=== PATIENT | female | born 1990 | race Hispanic/Latino ===

== ENCOUNTER 2021-12-31 16:16 | Inpatient (IN) | payer OTHER, SELFPAY ==
[2021-12-31] MEDS ORDERED: Promethazine HCl 25 MG/ML VIAL IM PRN (16:44)
[2021-12-31] MEDS ORDERED: hydrALAZINE 20 MG/ML VIAL SLOW IVP PRN (16:44)
[2021-12-31] MEDS ORDERED: Ondansetron PF 4 MG/2 ML Vial IVP PRN (16:44)
[2021-12-31] MEDS ORDERED: Misoprostol 200 MCG TAB PR PRN (16:46)
[2021-12-31] MEDS ORDERED: Lidocaine 1% (PF) 30 ML VIAL SC PRN (16:46)
[2021-12-31] MEDS ORDERED: Ibuprofen 800 MG TAB PO PRN (16:46)
[2021-12-31] MEDS ORDERED: NS w/ Oxytocin 30 units 500 ML IV SCH (17:00)
[2021-12-31 17:14] VITALS: BMI 32.1
[2021-12-31 18:04] LABS: Hemoglobin 10.8 g/dL (12.0-15.5); Mean Corpuscular HGB CONC 33.8 g/dL (32.0-36.0); Mean Corpuscular Hemoglobin 29.2 pg (27.0-33.0); Mean Corpuscular Volume 86.5 fl (81.6-98.3); Mean Platelet Volume 11.8 fl (7.4-10.4); Platelet Count 226 10x3/uL (150-450); RBC Distribution Width 14.1 % (11.5-14.5); White Blood Cell (WBC) Count 9.8 10x3/uL (3.5-10.5)
[2021-12-31 18:28] LABS: HIV (1/2) Antibody/Antigen Non-Reactive (NonReactive); HIV 1/2 INDEX 0.06 S/CO (<1.00); Hep B Surf Ag Non-Reactive S/CO (NonReactive)
[2021-12-31 18:29] LABS: HBSAg Index 0.21 S/CO (0-0.99)
[2021-12-31] MEDS ORDERED: Preparation H Ointment 28 GM TUBE PR PRN (18:53)
[2021-12-31] MEDS ORDERED: Milk Of Magnesia 30 ML UDCUP PO PRN (18:53)
[2021-12-31] MEDS ORDERED: Bisacodyl 10 MG SUPP PR PRN (18:53)
[2021-12-31 19:20] LABS: Syphilis Antibody Nonreactive (Nonreactive); Syphilis Antibody Index 0.06 S/CO (<1.00 Non-Reactive)
[2021-12-31 19:32] LABS: SARS-CoV-2 NAA Rapid Test Not Detected (NotDetected)
[2021-12-31] MEDS: Docusate 100 MG CAP PO SCH (21:54)
[2021-12-31] MEDS: Ibuprofen 800 MG TAB PO SCH (22:11)
[2022-01-01] MEDS: Ibuprofen 800 MG TAB PO SCH ×2 (06:02→14:35)
[2022-01-01] MEDS: Ferrous Sulfate 325 MG TAB PO SCH ×2 (08:36→16:00)
[2022-01-01] MEDS: Docusate 100 MG CAP PO SCH (08:36)
[2022-01-01] MEDS ORDERED: Prenatal Vitamin 1 TAB PO SCH (09:00)
[2022-01-01 15:40] VITALS: BP 126/79; TEMP 97.9
== END 2022-01-01 18:43 | disposition home or self-care (01) | DRG 807 ==
LOC: CSHERS 16:16 → CSHLD 16:38 → CSHPP 20:50
PROVIDERS: ADMIT Obstetrics & Gynecology; ATTEND Obstetrics & Gynecology
PROC: 10E0XZZ Delivery of Products of Conception, External Approach (ICD-10-PCS; principal; 2021-12-31)
DX: O42.02 Full-term premature rupture of membranes, onset of labor within 24 hours of rupture (principal); Z37.0 Single live birth; D64.9 Anemia, unspecified; O62.3 Precipitate labor; O77.0 Labor and delivery complicated by meconium in amniotic fluid; O99.02 Anemia complicating childbirth; Z3A.39 39 weeks gestation of pregnancy; Z20.822 Contact with and (suspected) exposure to COVID-19; O69.81X0 Labor and delivery complicated by cord around neck, without compression, not applicable or unspecified
CPT/HCPCS: 85027; 86780; 86850; 86900; 86901; 87340; 87389; 99284; J2590; U0002